=== PATIENT | female | born 1980 | race Hispanic/Latino ===

== ENCOUNTER 2024-05-30 08:00 | Emergency (ER) | payer SELFPAY ==
[2024-05-30] MEDS ORDERED: NA CHLORIDE 0.9% 100 ML ONE (08:35)
[2024-05-30] MEDS ORDERED: AMPICILLIN/SULBACTAM 3GM/VIAL ONE (08:35)
[2024-05-30 08:43] LABS: Absolute Basophils 0.1 K/uL (0-0.5); Absolute Eosinophils 0.2 K/uL (0-0.5); Absolute Lymphocytes (CBC) 2.4 K/uL (0.7-4.9); Absolute Monocytes 0.7 K/uL (0.1-1.3); Absolute Neutrophil 9.2 K/uL (1.8-8.0); Basophils % 0.8 % (0-1.3); Eosinophils % 1.7 % (0-4.4); Hematocrit 37.8 % (36.0-45.0); Hemoglobin 12.9 g/dL (12.0-15.0); Lymphocytes % 18.7 % (15.3-44.8); MCH 28.9 pg (27.0-35.0); MCHC 34.1 g/dL (32.0-36.0); MCV 84.7 fL (80-100); MPV 8.4 fL (7.6-11.3); Monocytes % 5.6 % (3.3-12.3); Neutrophils % 73.2 % (41.7-73.7); Nucleated Red Blood Cells % 0.1 % (0-0); Platelets 262 thou/uL (152-406); RBC Red Blood Cell Count 4.47 M/uL (3.86-4.86); Red Cell Distribution Width 14.4 % (12.1-15.2)
--- NOTE | 2024-05-30 08:51 | RAD REPORT ---
EXAM: Soft Tissue Neck W/Contr INDICATION: Neck pain. Sore throat TECHNIQUE: Helical CT examination of the neck [id number] cc Isovue-300 IV contrast. Sagittal and coronal reformations were generated. This exam was performed according to our departmental dose-optimization program, which includes automated exposure control, adjustment of the mA and/or kV according to patient size and/or use of iterative reconstruction technique. COMPARISON: None. FINDINGS: Mild prominence of the right tonsil. No peritonsillar abscess. The remainder of the pharynx, larynx and subglottic trachea are unremarkable Parotid, submandibular and right lobe thyroid gland appear normal. 6 mm nodule left lobe thyroid. It likely is benign. No follow-up imaging recommended. No lymphadenopathy seen. No fluid within the visualized sinuses/mastoids. IMPRESSION: Mild prominence of the right tonsil may indicate a mild tonsillitis
[2024-05-30 09:10] LABS: Anion Gap 9.6 mEq/L (5.0-15.0); Potassium 3.6 mEq/L (3.5-5.1)
[2024-05-30 09:11] LABS: Influenza A Ag Negative; Influenza B Ag Negative; SARS-CoV-2 Antigen Rapid Res Negative (Negative)
--- NOTE | 2024-05-30 09:39 | ER ---
Nurse's Notes [facility] Name: Avani Garber Age: 43 yrs Sex: Female : 1980 Arrival Date: 05/30/2024 Time: 08:00 Bed 5 Private MD: Diagnosis: Tonsillitis Presentation: 05/30 08:18 Chief complaint: Patient states: Swollen tonsil on right side x 1 week, started taking jl7 amoxicillin from [place] last night and started having cold sweats. Coronavirus screen: At this time, the client does not indicate any symptoms associated with coronavirus-19. Ebola Screen: No symptoms or risks identified at this time. Initial Sepsis Screen: Does the patient meet any 2 criteria? No. Patient's initial sepsis screen is negative. Does the patient have a suspected source of infection? No. Patient's initial sepsis screen is negative. Risk Assessment: Do you want to hurt yourself or someone else? Patient reports no desire to harm self or others. Onset of symptoms was May 23, 2024. 08:18 Method Of Arrival: Ambulatory [facility] 08:18 Acuity: CHI 3 jl7 Triage Assessment: 08:21 General: Appears in no apparent distress. uncomfortable, Behavior is calm, cooperative, jl7 appropriate for age. Pain: Complains of pain in throat. EENT: Throat is reddened has enlarged tonsils on right. Neuro: Neuro: Level of Consciousness is awake, alert, obeys commands, Oriented to person, place, time, situation. Derm: Skin is pink, warm \\T\\ dry. 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 - Infectious Disease History:: Denies. - Social history:: Smoking status: Reported history of juuling and/or vaping. Screenin:52 [facility] ED Fall Risk Assessment (Adult) History of falling in the last 3 months, iw including since admission No falls in past 3 months (0 pts) Confusion or Disorientation No (0 pts) Intoxicated or Sedated No (0 pts) Impaired Gait No (0 pts) Mobility Assist Device Used No (0 pt) Altered Elimination No (0 pt) Score/Fall Risk Level 0 - 2 = Low Risk Oriented to surroundings, Maintained a safe environment. Abuse screen: Denies threats or abuse. Denies injuries from another. Nutritional screening: No deficits noted. Tuberculosis screening: No symptoms or risk factors identified. Assessment: 08:30 General: Appears in no apparent distress. Behavior is calm, cooperative. Pain: iw Complains of pain in right aspect of posterior pharynx Pain. Neuro: Level of Consciousness is awake, alert, obeys commands, Oriented to person, place, time, situation, Moves all extremities. Full function. Cardiovascular: Patient's skin is warm and dry. Respiratory: Respiratory effort is even, unlabored, Respiratory pattern is regular, symmetrical. EENT: Throat is reddened has enlarged tonsils on right with gag reflex present. Derm: Skin is intact, is healthy with good turgor. 09:30 Reassessment: Patient appears in no apparent distress at this time. No changes from jl7 previously documented assessment. Patient and/or family updated on plan of care and expected duration. Pain level reassessed. Patient is alert, oriented x 3, equal unlabored respirations, skin warm/dry/pink. Vital Signs: 08:18 BP 160 / 102; Pulse 76; Resp 17; Temp 98.6; Pulse Ox 100% ; Weight 106.14 kg; Height 5 jl7 ft. 7 in. ; Pain 8/10; 10:26 BP 129 / 92; Pulse 67; Resp 15; Pulse Ox 100% ; jl7 08:18 Body Mass Index 36.65 (106.14 kg, 170.18 cm) jl7 08:18 Pain Scale: Adult jl7 ED Course: 08:02 Patient arrived in ED. im 08:05 Brittney Rogers MD is Attending Physician. sp3 08:18 Duncan Clay RN is Primary Nurse. jl7 08:20 Triage completed. jl7 08:21 Arm band placed on right wrist. jl7 08:30 Provided Education on: lab draw. iw 08:36 Initial lab(s) drawn, by me, sent to lab. Inserted saline lock: 22 gauge in right iw antecubital area, using aseptic technique. Blood collected. Flushed with 10 mL NS. 08:37 COVID-19 Ag + Flu A+B Ag Sent. iw 08:37 Group A Streptococcus Rapid Sent. iw 08:41 CT Soft Tissue Neck W/contr In Process Unspecified. EDMS 08:52 Patient has correct armband on for positive identification. iw 10:26 No provider procedures requiring assistance completed. IV discontinued, intact, jl7 bleeding controlled, No redness/swelling at site. Pressure dressing applied. Administered Medications: 08:51 Drug: Ampicillin-Sulbactam Sodium IVPB 3 grams IVPB once over 30 mins; (mix in 100 mL jl7 NS) Route: IVPB; Infused Over: 30 mins; Site: right antecubital; 09:21 Follow up: Response: No adverse reaction; IV Status: Completed infusion jl7 Medication: 10:26 VIS not applicable for this client. jl7 Outcome: 09:38 Discharge ordered by . sp3 10:26 Discharged to home ambulatory, jl7 10:26 Condition: stable 10:26 Discharge instructions given to patient, Instructed on discharge instructions, follow up and referral plans. medication usage, Demonstrated understanding of instructions, follow-up care, medications, Prescriptions given X 3, 10:27 Patient left the ED. jl7 Signatures: Dispatcher [employer] EDMS Bev Soto RN RN iw Duncan Clay RN RN jl7 Brittney Rogers MD MD sp3 Jessica Deutsch Corrections: (The following items were deleted from the chart) 08:21 08:20 Allergies: No Known Allergies; jl7 jl7
--- NOTE | 2024-05-30 09:39 | EDPHYS ---
Physician Documentation [facility] Name: Avani Garber Age: 43 yrs Sex: Female : 1980 Arrival Date: 05/30/2024 Time: 08:00 Bed 5 Private MD: ED Physician Brittney Rogers HPI: 05/30 08:42 This 43 yrs old Female presents to ER via Ambulatory with complaints of Swollen sp3 tonsils, sweats. 08:42 43-year-old female with history of diabetes, hypertension, hyperlipidemia, obesity now sp3 presents with right sided tonsillar swelling and pain and subjective fever for the last 2 to 3 days. Patient took "amoxicillin from [place]" which has not significantly improved. She denies any difficulty swallowing but it is painful. She denies any headache, neck pain posteriorly, chest pain, shortness of breath, abdominal pain, nausea, vomiting, diarrhea, bleeding or any other signs or symptoms on ROS at this time.. 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 - Infectious Disease History:: Denies. - Social history:: Smoking status: Reported history of juuling and/or vaping. ROS: 08:43 Constitutional: Negative for fever, chills, and weight loss, Eyes: Negative for injury, sp3 pain, redness, and discharge, Neck: Negative for injury, pain, and swelling, Cardiovascular: Negative for chest pain, palpitations, and edema, Respiratory: Negative for shortness of breath, cough, wheezing, and pleuritic chest pain, Abdomen/GI: Negative for abdominal pain, nausea, vomiting, diarrhea, and constipation, Back: Negative for injury and pain, MS/Extremity: Negative for injury and deformity, Skin: Negative for injury, rash, and discoloration, Neuro: Negative for headache, weakness, numbness, tingling, and seizure, Psych: Negative for depression, anxiety, suicide ideation, homicidal ideation, and hallucinations, Allergy/Immunology: Negative for hives, rash, and allergies, Endocrine: Negative for neck swelling, polydipsia, polyuria, polyphagia, and marked weight changes, Hematologic/Lymphatic: Negative for swollen nodes, abnormal bleeding, and unusual bruising, Exam: 08:43 Constitutional: This is a well developed, well nourished patient who is awake, alert, sp3 and in no acute distress. Head/Face: Normocephalic, atraumatic. Eyes: Pupils equal round and reactive to light, extra-ocular motions intact. Lids and lashes normal. Conjunctiva and sclera are non-icteric and not injected. Cornea within normal limits. Periorbital areas with no swelling, redness, or edema. Chest/axilla: Normal chest wall appearance and motion. Nontender with no deformity. No lesions are appreciated. Cardiovascular: Regular rate and rhythm with a normal S1 and S2. No gallops, murmurs, or rubs. Normal PMI, no JVD. No pulse deficits. Respiratory: Lungs have equal breath sounds bilaterally, clear to auscultation and percussion. No rales, rhonchi or wheezes noted. No increased work of breathing, no retractions or nasal flaring. Abdomen/GI: Soft, non-tender, with normal bowel sounds. No distension or tympany. No guarding or rebound. No evidence of tenderness throughout. Back: No spinal tenderness. No costovertebral tenderness. Full range of motion. Skin: Warm, dry with normal turgor. Normal color with no rashes, no lesions, and no evidence of cellulitis. MS/ Extremity: Pulses equal, no cyanosis. Neurovascular intact. Full, normal range of motion. Neuro: Awake and alert, GCS 15, oriented to person, place, time, and situation. Cranial nerves II-XII grossly intact. Motor strength 5/5 in all extremities. Sensory grossly intact. Cerebellar exam normal. Normal gait. Psych: Awake, alert, with orientation to person, place and time. Behavior, mood, and affect are within normal limits. 08:43 ENT: Right tonsillar swelling with mild uvular shift. Patient maintaining airway and secretions.. Vital Signs: 08:18 BP 160 / 102; Pulse 76; Resp 17; Temp 98.6; Pulse Ox 100% ; Weight 106.14 kg; Height 5 jl7 ft. 7 in. ; Pain 8/10; 10:26 BP 129 / 92; Pulse 67; Resp 15; Pulse Ox 100% ; jl7 08:18 Body Mass Index 36.65 (106.14 kg, 170.18 cm) jl7 08:18 Pain Scale: Adult jl7 MDM: 08:10 Medical Screening Exam initiated sp3 08:48 Data reviewed: vital signs, nurses notes. ED course: 43-year-old female with sore sp3 throat and right sided tonsillar swelling. Differential diagnosis includes strep pharyngitis, viral illness, peritonsillar abscess. Will obtain CT scan of the soft tissue neck, general labs and administer Unasyn 1 dose IV. Disposition pending workup and patient course.. 09:37 ED course: Patient with tonsillitis with no abscess noted. Will discharge on Augmentin sp3 and pain medication.. 05/30 08:20 Order name: CBC with Diff; Complete Time: 08:55 sp3 05/30 08:20 Order name: BMP; Complete Time: 09:37 sp3 05/30 08:20 Order name: Group A Streptococcus Rapid; Complete Time: 09:37 sp3 05/30 08:20 Order name: COVID-19 Ag + Flu A+B Ag; Complete Time: 09:37 sp3 05/30 09:03 Order name: Throat Culture EDMS 05/30 08:20 Order name: CT Soft Tissue Neck W/contr; Complete Time: 08:55 sp3 05/30 08:20 Order name: IV Saline Lock; Complete Time: 08:36 sp3 05/30 08:20 Order name: Labs collected and sent; Complete Time: 08:36 sp3 Administered Medications: 08:51 Drug: Ampicillin-Sulbactam Sodium IVPB 3 grams IVPB once over 30 mins; (mix in 100 mL jl7 NS) Route: IVPB; Infused Over: 30 mins; Site: right antecubital; 09:21 Follow up: Response: No adverse reaction; IV Status: Completed infusion jl7 Disposition Summary: 05/30/24 09:38 Discharge Ordered Notes: Location: Home sp3 Condition: Stable sp3 Diagnosis - Tonsillitis sp3 Followup: sp3 - With: Private Physician - When: Upon discharge from the Emergency Department - Reason: Continuance of care Discharge Instructions: - Discharge Summary Sheet sp3 - Tonsillitis sp3 Forms: - Work release form ss - Medication Reconciliation Form sp3 - Antibiotic Education sp3 - Prescription Opioid Use sp3 - Patient Portal Instructions sp3 - Leadership Thank You Letter sp3 Prescriptions: - Augmentin 875-125 mg Oral Tablet - take 1 tablet ORAL route every 12 hours for 10 days; 20 tablet; Refills: 0, sp3 Product Selection Permitted - Diflucan 150 mg Oral Tablet - take 1 tablet ORAL route one time for 1 day; 1 tablet; Refills: 0, Product sp3 Selection Permitted - Diclofenac Sodium 75 mg Oral Tablet Sustained Release - take 1 tablet ORAL route 2 times per day; 30 tablet; Refills: 0, Product sp3 Selection Permitted Signatures: Dispatcher [employer] EDMS Duncan Clay RN RN jl7 Brittney Rogers MD MD sp3 Corrections: (The following items were deleted from the chart) 08:21 08:21 CBC+H.LAB.BRZ ordered. EDMS EDMS 08:21 08:21 BASIC METABOLIC PANEL+C.LAB.BRZ ordered. EDMS EDMS 08:21 08:21 Group A Streptococcus Rapid Sc+I.LAB.BRZ ordered. EDMS EDMS 08:21 08:21 COVID-19 Ag + Flu A+B Ag+I.LAB.BRZ ordered. EDMS EDMS 08:21 08:21 Soft Tissue Neck W/Contr+CT.RAD.BRZ ordered. EDMS EDMS 08:21 08:20 Allergies: No Known Allergies; jl7 jl7
[2024-05-30 10:32] VITALS: TEMP 98.6; O2SAT 100
[2024-05-30 10:33] VITALS: BP 129/92
== END 2024-05-30 10:27 | disposition home or self-care (01) ==
LOC: ER 08:00
DX: J03.90 Acute tonsillitis, unspecified (principal); Z11.52 Encounter for screening for COVID-19
CPT/HCPCS: 36415; 70491; 80048; 85025; 87070; 87428; 96365; 99284; J0295; Q9967

== ENCOUNTER 2024-06-08 14:27 | Emergency (ER) | payer SELFPAY ==
[2024-06-08] MEDS ORDERED: KETOROLAC 30 MG/ML INJ ONE (14:49)
--- NOTE | 2024-06-08 16:59 | RAD REPORT ---
EXAMINATION: XR Elbow Right 3 View CLINICAL INDICATION: Female, 43 years old. PAIN RIGHT TECHNIQUE: 3 view radiographs of the right elbow were obtained. COMPARISON: No prior exam. FINDINGS: No evidence of fracture or dislocation. Normal alignment. No joint effusion. No evidence of arthropathy. No suspicious focal bone lesion. Soft tissues are unremarkable. IMPRESSION: No acute or significant abnormalities.
--- NOTE | 2024-06-08 17:10 | RAD REPORT ---
EXAMINATION: XR RIGHT HUMERUS HISTORY: PAIN RIGHT TECHNIQUE: Multiple views of the right humerus were obtained. COMPARISON: None FINDINGS: No acute fracture or dislocation. Mild caudal subluxation of the humeral head, although sub optimal positioning limits evaluation. Focus of mineralization adjacent to the greater tuberosity, could reflect sequelae of calcific tendinitis. Elbow joint alignment well maintained. Mild enthesopat hy at the tip of the acromion. AC joint appears well aligned.
--- NOTE | 2024-06-08 17:39 | ER ---
Nurse's Notes [facility] Name: Avani Garber Age: 43 yrs Sex: Female : 1980 Arrival Date: 06/08/2024 Time: 14:27 Bed 11 Private MD: Diagnosis: Pain in right arm Presentation: 06/08 14:52 Chief complaint: Patient states: pain to right elbow since yesterday. Coronavirus iw screen: At this time, the client does not indicate any symptoms associated with coronavirus-19. Ebola Screen: No symptoms or risks identified at this time. Initial Sepsis Screen: Does the patient meet any 2 criteria? No. Patient's initial sepsis screen is negative. Does the patient have a suspected source of infection? No. Patient's initial sepsis screen is negative. Risk Assessment: Do you want to hurt yourself or someone else? Patient reports no desire to harm self or others. Onset of symptoms was June 07, 2024. 14:52 Acuity: CHI 4 iw 14:52 Method Of Arrival: Ambulatory iw Triage Assessment: 18:05 General: Appears in no apparent distress. Injury Description: Bruise. 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 - Infectious Disease History:: Denies. - Social history:: Smoking status: Patient denies any tobacco usage or history of. Screenin:03 [facility] ED Fall Risk Assessment (Adult) History of falling in the last 3 months, ll1 including since admission Yes- single mechanical fall (1 pt) Confusion or Disorientation No (0 pts) Intoxicated or Sedated No (0 pts) Impaired Gait No (0 pts) Mobility Assist Device Used No (0 pt) Altered Elimination No (0 pt) Score/Fall Risk Level 0 - 2 = Low Risk Maintained a safe environment, Hourly rounding (assess needs \T\ fall precautionary measures) done. Abuse screen: Denies threats or abuse. Nutritional screening: No deficits noted. Tuberculosis screening: No symptoms or risk factors identified. Assessment: 16:15 General: Appears uncomfortable, Behavior is calm, cooperative, appropriate for age. ll1 Pain: Complains of pain in right elbow Quality of pain is described as aching. Musculoskeletal: Circulation, motion, and sensation intact. Capillary refill < 3 seconds, in right fingers. Reports pain in right elbow. 17:55 Musculoskeletal: Circulation, motion, and sensation intact. Capillary refill < 3 ll1 seconds, in right fingers. 18:03 Reassessment: No changes from previously documented assessment. Patient and/or family ll1 updated on plan of care and expected duration. Pain level reassessed. Patient is alert, oriented x 3, equal unlabored respirations, skin warm/dry/pink. Vital Signs: 14:52 BP 144 / 85; Pulse 65; Resp 16; Temp 97.6; Pulse Ox 99% ; Weight 106.59 kg; Height 5 iw ft. 7 in. ; Pain 9/10; 14:52 Body Mass Index 36.81 (106.59 kg, 170.18 cm) iw 14:52 Pain Scale: Adult iw ED Course: 14:28 Patient arrived in ED. mr 14:32 Francisca Guillory, [facility]. kb 14:32 Raquel Gonzalez MD is Attending Physician. kb 14:53 Triage completed. iw 14:54 Arm band placed on. iw 15:40 Humerus Right XRAY In Process Unspecified. EDMS 15:40 Elbow Right 3 View XRAY In Process Unspecified. EDMS 16:13 Patient placed in an exam room, on a stretcher. ll1 16:15 Veda Sanford, SARA is Primary Nurse. ll1 16:15 Warm blanket given. ll1 17:39 Raquel Gonzalez MD is Referral Physician. kb 17:50 Sling applied to right arm. ll1 18:04 Patient has correct armband on for positive identification. Provided Education on: ll1 return to ED for worsening symptoms. 18:04 No provider procedures requiring assistance completed. Patient did not have IV access ll1 during this emergency room visit. Administered Medications: 15:01 Drug: Ketorolac IM 30 mg IM once Route: IM; Site: right deltoid; iw 18:05 Follow up: Response: No adverse reaction; Pain is decreased ll1 Medication: 18:05 VIS not applicable for this client. ll1 Outcome: 17:39 Discharge ordered by . kb 18:04 Discharged to home ambulatory, ll1 18:04 Condition: stable 18:04 Discharge instructions given to patient, Instructed on discharge instructions, follow up and referral plans. medication usage, Demonstrated understanding of instructions, follow-up care, medications, Prescriptions given X 1, 18:06 Patient left the ED. ll1 Signatures: Dispatcher [employer] EDMS Francisca Guillory, CASH REGISTER MECHANIC-C CASH REGISTER MECHANIC-Ckb BuchananIsabel, Reg Reg mr Bev Soto RN Veda Chopra RN RN ll1 Corrections: (The following items were deleted from the chart) 14:54 14:52 Pulse 65bpm; Resp 16bpm; Pulse Ox 99%; Temp 97.6F; Pain 9/10, Adult; johnson ornelas
--- NOTE | 2024-06-08 17:39 | EDPHYS ---
Physician Documentation [facility] Name: Avani Garber Age: 43 yrs Sex: Female : 1980 Arrival Date: 06/08/2024 Time: 14:27 Bed 11 Private MD: ED Physician Raquel Gonzalez HPI: 06/08 14:49 This 43 yrs old Female presents to ER via Unassigned with complaints of Elbow kb Injury. 14:49 Pt is a 43 year old female who presents for right upper arm/elbow pain that started kb yesterday and got worse today. Denies fall, injury. States she has been lifting things at work, but that is not new. . 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 - Infectious Disease History:: Denies. - Social history:: Smoking status: Patient denies any tobacco usage or history of. ROS: 17:37 Constitutional: As per HPI kb Exam: 17:37 Constitutional: This is a well developed, well nourished patient who is awake, alert, kb and in no acute distress. Head/Face: Normocephalic, atraumatic. ENT: Moist Mucous membranes Cardiovascular: Regular rate Respiratory: Respirations even and unlabored. No increased work of breathing. Talking in full sentences Abdomen/GI: Soft, non-tender. No distention Skin: Warm, dry with normal turgor. Normal color. Neuro: Awake and alert, GCS 15, oriented to person, place, time, and situation. 17:37 Musculoskeletal/extremity: Extremities: grossly normal except: noted in the anterior aspect of right shoulder, right elbow and right upper arm: decreased ROM, pain, tenderness, ROM: limited active range of motion due to pain, Circulation is intact in all extremities. Sensation intact. Vital Signs: 14:52 BP 144 / 85; Pulse 65; Resp 16; Temp 97.6; Pulse Ox 99% ; Weight 106.59 kg; Height 5 iw ft. 7 in. ; Pain 9/10; 14:52 Body Mass Index 36.81 (106.59 kg, 170.18 cm) iw 14:52 Pain Scale: Adult iw MDM: 14:32 Medical Screening Exam initiated kb 17:38 Differential diagnosis: dislocation, closed fracture, contusion, tendonitis. Data kb reviewed: vital signs, nurses notes. Counseling: I had a detailed discussion with the patient and/or guardian regarding the historical points, exam findings, and any diagnostic results supporting the discharge/admit diagnosis, radiology results, the need for outpatient follow up, a family practitioner, to return to the emergency department if symptoms worsen or persist or if there are any questions or concerns that arise at home. 06/08 14:51 Order name: Humerus Right XRAY; Complete Time: 17:11 kb 06/08 14:51 Order name: Elbow Right 3 View XRAY; Complete Time: 17:00 kb 06/08 17:41 Order name: Sling; Complete Time: 17:51 kb Administered Medications: 15:01 Drug: Ketorolac IM 30 mg IM once Route: IM; Site: right deltoid; iw 18:05 Follow up: Response: No adverse reaction; Pain is decreased ll1 Disposition Summary: 06/08/24 17:39 Discharge Ordered Notes: Location: Home kb Condition: Stable kb Diagnosis - Pain in right arm kb Followup: kb - With: Emergency Department - When: As needed - Reason: Worsening of condition Followup: kb - With: Private Physician - When: 2 - 3 days - Reason: Recheck today's complaints, Continuance of care, Re-evaluation by your physician Discharge Instructions: - Discharge Summary Sheet kb - Musculoskeletal Pain kb Forms: - Work release form kb - Medication Reconciliation Form kb - Antibiotic Education kb - Prescription Opioid Use kb - Patient Portal Instructions kb - Leadership Thank You Letter kb Prescriptions: - Diclofenac Sodium 75 mg Oral tablet, delayed release (enteric coated) - take 1 tablet ORAL route 2 times per day As needed; 30 tablet; Refills: 0, kb Product Selection Permitted Signatures: Dispatcher [employer] Francisca Stinson FNP-C FNP-Bev Mosqueda RN RN iw Veda Sanford RN RN ll1 Corrections: (The following items were deleted from the chart) 14:52 14:52 Humerus Right+RAD.RAD.BRZ ordered. EDMS EDMS 14:52 14:52 Elbow Right 3 View+RAD.RAD.BRZ ordered. EDMS EDMS
[2024-06-08 18:10] VITALS: BP 144/85; TEMP 97.6; O2SAT 99
== END 2024-06-08 18:06 | disposition home or self-care (01) ==
LOC: ER 14:27
DX: M79.601 Pain in right arm (principal)

== ENCOUNTER 2024-06-24 00:24 | Emergency (ER) | payer SELFPAY ==
--- NOTE | 2024-06-24 00:45 | ER ---
Nurse's Notes [facility] Name: Avani Garber Age: 43 yrs Sex: Female : 1980 Arrival Date: 06/24/2024 Time: 00:24 Bed 19 Private MD: Diagnosis: Acute tonsillitis, unspecified Presentation: 06/24 00:34 Chief complaint: Patient states: sore throat and swollen tonsils X1 day. Coronavirus lg3 screen: Client denies travel out of the [place] in the last 14 days. At this time, the client does not indicate any symptoms associated with coronavirus-19. Ebola Screen: No symptoms or risks identified at this time. Initial Sepsis Screen: Does the patient meet any 2 criteria? No. Patient's initial sepsis screen is negative. Does the patient have a suspected source of infection? No. Patient's initial sepsis screen is negative. Risk Assessment: Do you want to hurt yourself or someone else? Patient reports no desire to harm self or others. Onset of symptoms was June 23, 2024. 00:34 Method Of Arrival: Ambulatory lg3 00:34 Acuity: CHI 4 lg3 Triage Assessment: 00:36 General: Appears in no apparent distress. comfortable, Behavior is calm, cooperative. lg3 Pain: Complains of pain in throat. EENT: Throat is reddened has patchy exudate has enlarged tonsils Reports pain when swallowing. Neuro: No deficits noted. Smith Agitation-Sedation Scale (RASS): 0 - Alert and Calm Level of Consciousness is awake, alert, obeys commands, Oriented to person, place, time, situation. Cardiovascular: No deficits noted. Denies chest pain, shortness of breath, Capillary refill < 3 seconds Clubbing of nail beds is absent JVD is absent Patient's skin is warm and dry. Respiratory: No deficits noted. Airway is patent Respiratory effort is even, unlabored, Respiratory pattern is regular, symmetrical. GI: No deficits noted. No signs and/or symptoms were reported involving the gastrointestinal system. : No signs and/or symptoms were reported regarding the genitourinary system. Derm: No deficits noted. No signs and/or symptoms reported regarding the dermatologic system. Skin is intact, is healthy with good turgor, Skin is dry, Skin is normal, Skin temperature is warm. Musculoskeletal: No deficits noted. No signs and/or symptoms reported regarding the musculoskeletal system. Circulation, motion, and sensation intact. Range of motion: intact in all extremities. 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 - Infectious Disease History:: Denies. - Social history:: Smoking status: Reported history of juuling and/or vaping. Patient uses alcohol, but reports only rare drinking. Patient/guardian denies using street drugs. - Family history:: not pertinent. - Hospitalizations: : No recent hospitalization is reported. Screenin:08 [facility] ED Fall Risk Assessment (Adult) History of falling in the last 3 months, ha1 including since admission No falls in past 3 months (0 pts) Confusion or Disorientation No (0 pts) Intoxicated or Sedated No (0 pts) Impaired Gait No (0 pts) Mobility Assist Device Used No (0 pt) Altered Elimination No (0 pt) Score/Fall Risk Level 0 - 2 = Low Risk Oriented to surroundings, Maintained a safe environment, Educated pt \T\ family on fall prevention, incl call for assistance when getting out of bed, Hourly rounding (assess needs \T\ fall precautionary measures) done. Abuse screen: Denies threats or abuse. Denies injuries from another. Nutritional screening: No deficits noted. Tuberculosis screening: No symptoms or risk factors identified. Assessment: 00:33 General: Appears comfortable, Behavior is calm, cooperative. Pain: Complains of pain in ha1 sore throat Pain currently is 7 out of 10 on a pain scale. Neuro: Level of Consciousness is awake, alert, obeys commands, Oriented to person, place, time, situation. Cardiovascular: Patient's skin is warm and dry. Respiratory: Airway is patent Respiratory effort is even, unlabored, Respiratory pattern is regular, symmetrical, Breath sounds are clear bilaterally. GI: No signs and/or symptoms were reported involving the gastrointestinal system. : No signs and/or symptoms were reported regarding the genitourinary system. EENT: Throat is reddened has patchy exudate. Derm: Skin is pink, warm \T\ dry. Vital Signs: 00:34 BP 141 / 73; Pulse 80; Resp 17 S; Temp 98.8(O); Pulse Ox 99% on R/A; Weight 106.59 kg lg3 (R); Height 5 ft. 7 in. (R); 01:08 BP 118 / 62; Pulse 75; Resp 17 S; Pulse Ox 98% on R/A; ha1 00:34 Body Mass Index 36.81 (106.59 kg, 170.18 cm) lg3 ED Course: 00:25 Patient arrived in ED. jj6 00:25 Randy Diaz MD is Attending Physician. rn 00:33 Patient has correct armband on for positive identification. Bed in low position. Call ha1 light in reach. Side rails up X 1. 00:33 Provided Education on: medication administration . ha1 00:36 Triage completed. lg3 00:36 Arm band placed on right wrist. lg3 01:09 No provider procedures requiring assistance completed. Patient did not have IV access ha1 during this emergency room visit. Administered Medications: 00:56 Drug: Rocephin (cefTRIAXone) IM 1 grams IM once Route: IM; Site: right ventrogluteal; ha1 01:10 Follow up: Response: No adverse reaction ha1 00:56 Drug: Dexamethasone IM 10 mg IM once Route: IM; Site: right ventrogluteal; ha1 01:10 Follow up: Response: No adverse reaction ha1 Medication: 01:10 VIS not applicable for this client. ha1 Outcome: 00:44 Discharge ordered by . rn 01:10 Discharged to home ambulatory, ha1 01:10 Condition: stable 01:10 Discharge instructions given to patient, Instructed on discharge instructions, follow up and referral plans. medication usage, Demonstrated understanding of instructions, follow-up care, medications, Prescriptions given X 1, 01:11 Patient left the ED. ha1 Signatures: Randy Diaz MD MD rn Able, Lacie, RN RN lg3 Diamond Meza jj6 Shelley Glass RN RN ha1
--- NOTE | 2024-06-24 00:45 | EDPHYS ---
Physician Documentation [facility] Name: Avani Garber Age: 43 yrs Sex: Female : 1980 Arrival Date: 06/24/2024 Time: 00:24 Bed 19 Private MD: ED Physician Randy Diaz HPI: 06/24 00:39 This 43 yrs old Female presents to ER via Ambulatory with complaints of Sore rn Throat. 00:39 The patient presents with sore throat. The patient describes throat pain as raw. Onset: rn The symptoms/episode began/occurred yesterday. Severity of symptoms: At their worst the symptoms were mild, in the emergency department the symptoms are unchanged. Associated signs and symptoms: Pertinent negatives fever, rhinorrhea, shortness of breath. The patient has experienced similar episodes in the past. Patient reports sore throat for 2 days, no fever or chills. Has recurrent tonsillitis. Took 1 dose of Augmentin earlier today. No difficulty swallowing or breathing. No neck stiffness. Patient reports her roommate was sick with viral infection recently.. 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 - Infectious Disease History:: Denies. - Social history:: Smoking status: Reported history of juuling and/or vaping. Patient uses alcohol, but reports only rare drinking. Patient/guardian denies using street drugs. - Family history:: not pertinent. - Hospitalizations: : No recent hospitalization is reported. ROS: 00:39 Constitutional: Negative for fever, chills, and weight loss, ENT: Positive for sore rn throat Cardiovascular: Negative for chest pain, palpitations, and edema, Respiratory: Negative for shortness of breath, cough, wheezing, and pleuritic chest pain, Exam: 00:39 Constitutional: This is a well developed, well nourished patient who is awake, alert, rn and in no acute distress. ENT: Bilateral tonsillar hypertrophy with exudate. Uvula midline. No stridor Respiratory: No increased work of breathing, no retractions or nasal flaring. Vital Signs: 00:34 BP 141 / 73; Pulse 80; Resp 17 S; Temp 98.8(O); Pulse Ox 99% on R/A; Weight 106.59 kg lg3 (R); Height 5 ft. 7 in. (R); 01:08 BP 118 / 62; Pulse 75; Resp 17 S; Pulse Ox 98% on R/A; ha1 00:34 Body Mass Index 36.81 (106.59 kg, 170.18 cm) lg3 MDM: 00:26 Medical Screening Exam initiated rn 00:39 Differential diagnosis: tonsillitis. Data reviewed: vital signs, nurses notes, and as a rn result, I will discharge patient. Counseling: I had a detailed discussion with the patient and/or guardian regarding the historical points, exam findings, and any diagnostic results supporting the discharge/admit diagnosis, the need for outpatient follow up, to return to the emergency department if symptoms worsen or persist or if there are any questions or concerns that arise at home. Special discussion: I discussed with the patient/guardian in detail that at this point there is no indication for admission to the hospital. It is understood, however, that if the symptoms persist or worsen the patient needs to return immediately for re-evaluation. Administered Medications: 00:56 Drug: Rocephin (cefTRIAXone) IM 1 grams IM once Route: IM; Site: right ventrogluteal; ha1 01:10 Follow up: Response: No adverse reaction ha1 00:56 Drug: Dexamethasone IM 10 mg IM once Route: IM; Site: right ventrogluteal; ha1 01:10 Follow up: Response: No adverse reaction ha1 Disposition Summary: 06/24/24 00:44 Discharge Ordered Notes: Location: Home rn Problem: new rn Symptoms: have improved rn Condition: Stable rn Diagnosis - Acute tonsillitis, unspecified rn Followup: rn - With: Private Physician - When: As needed - Reason: Recheck today's complaints, Re-evaluation by your physician Discharge Instructions: - Discharge Summary Sheet rn - Tonsillitis rn Forms: - Medication Reconciliation Form rn - Antibiotic manager furniture - Prescription Opioid Use rn - Patient Portal Instructions rn - Leadership Thank You Letter rn Prescriptions: - Augmentin 875-125 mg Oral Tablet - take 1 tablet ORAL route every 12 hours for 10 days; 20 tablet; Refills: 0, rn Product Selection Permitted Signatures: Randy Diaz MD MD rn Able, Lacie, RN RN lg3 Shelley Glass RN RN ha1
[2024-06-24] MEDS ORDERED: CEFTRIAXONE 1000 MG/VIAL ONE (00:49)
[2024-06-24] MEDS ORDERED: dexAMETHasone 10 MG/ML VIAL ONE (00:49)
[2024-06-24] MEDS ORDERED: LIDOCAINE 1% MPF 2 ML AMPULE ONE (00:49)
[2024-06-24 01:31] VITALS: TEMP 98.8
[2024-06-24 01:33] VITALS: BP 118/62; O2SAT 98
== END 2024-06-24 01:11 | disposition home or self-care (01) ==
LOC: ER 00:24
DX: J03.90 Acute tonsillitis, unspecified (principal); E11.9 Type 2 diabetes mellitus without complications; Z79.4 Long term (current) use of insulin; I10 Essential (primary) hypertension
CPT/HCPCS: 96372; 99284; J0696; J1100

== ENCOUNTER 2024-07-20 09:02 | Emergency (ER) | payer SELFPAY ==
[2024-07-20] MEDS ORDERED: ONDANSETRON 4 MG/2 ML VIAL ONE (09:30)
[2024-07-20 09:54] LABS: Absolute Eosinophils 0.1 K/uL (0-0.5); Absolute Lymphocytes (CBC) 1.3 K/uL (0.7-4.9); Absolute Monocytes 0.3 K/uL (0.1-1.3); Absolute Neutrophil 2.1 K/uL (1.8-8.0); Basophils % 0.9 % (0-1.3); Eosinophils % 3.8 % (0-4.4); Hematocrit 38.2 % (36.0-45.0); Hemoglobin 13.2 g/dL (12.0-15.0); Lymphocytes % 33.4 % (15.3-44.8); MCHC 34.7 g/dL (32.0-36.0); MCV 83.7 fL (80-100); MPV 7.7 fL (7.6-11.3); Monocytes % 7.9 % (3.3-12.3); Nucleated Red Blood Cells % 0.3 % (0-0); Platelets 185 thou/uL (152-406); RBC Red Blood Cell Count 4.56 M/uL (3.86-4.86); Red Cell Distribution Width 13.9 % (12.1-15.2)
[2024-07-20 10:19] LABS: ALT/SGPT 84 U/L (13-56); AST/SGOT 55 U/L (15-37); Albumin 3.4 g/dL (3.4-5.0); Albumin/Globulin Ratio 0.9 (1.1-1.8); Alkaline Phosphatase 133 U/L (45-117); BUN Blood Urea Nitrogen 18 mg/dL (7-18); Bicarbonate 25 mEq/L (21-32); Bilirubin Total 0.6 mg/dL (0.2-1.0); Glomerular Filtration Rate 110 ml/min (=/>90); Glucose Level 274 mg/dL (74-106); Protein, Total 7.4 g/dL (6.4-8.2); Sodium Level 136 mEq/L (136-145); Troponin High Sensitivity 3.1 pg/mL (<58.9)
[2024-07-20 10:20] LABS: Bilirubin Direct < 0.2 mg/dL (0-0.2); Bilirubin Indirect, Calculated 0.4 mg/dL (0.2-0.8)
[2024-07-20 10:22] LABS: Influenza A Ag Negative; Influenza B Ag Negative; SARS-CoV-2 Antigen Rapid Res Negative (Negative)
--- NOTE | 2024-07-20 10:55 | RAD REPORT ---
Procedure: Chest Single View HISTORY: Chest pain COMPARISON: none FINDINGS: The lungs appear clear of acute infiltrate. No significant pleural effusion noted. The heart is normal size. IMPRESSION: No acute abnormality is displayed.
--- NOTE | 2024-07-20 12:18 | ER ---
Nurse's Notes [facility] Name: Avani Garber Age: 43 yrs Sex: Female : 1980 Arrival Date: 07/20/2024 Time: 09:02 Bed 19 Private MD: Diagnosis: Pharyngitis, sore throat Presentation: 07/20 09:22 Chief complaint: Patient states: left sided CP x2 days with n/v/d this AM. denies abd kc6 pain. pt also reports ongoing sore throat x5 days. Coronavirus screen: At this time, the client does not indicate any symptoms associated with coronavirus-19. Ebola Screen: No symptoms or risks identified at this time. Initial Sepsis Screen: Does the patient meet any 2 criteria? No. Patient's initial sepsis screen is negative. Does the patient have a suspected source of infection? No. Patient's initial sepsis screen is negative. Risk Assessment: Do you want to hurt yourself or someone else? Patient reports no desire to harm self or others. Onset of symptoms was July 20, 2024. 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 - Infectious Disease History:: Denies. - Social history:: Smoking status: Reported history of juuling and/or vaping. Screenin:47 [facility] ED Fall Risk Assessment (Adult) History of falling in the last 3 months, kc6 including since admission No falls in past 3 months (0 pts) Confusion or Disorientation No (0 pts) Intoxicated or Sedated No (0 pts) Impaired Gait No (0 pts) Mobility Assist Device Used No (0 pt) Altered Elimination No (0 pt) Score/Fall Risk Level 0 - 2 = Low Risk Oriented to surroundings, Maintained a safe environment. Abuse screen: Denies threats or abuse. Denies injuries from another. Nutritional screening: No deficits noted. Tuberculosis screening: No symptoms or risk factors identified. Assessment: 09:47 General: Appears in no apparent distress. comfortable, well groomed, well developed, kc6 Behavior is calm, cooperative, appropriate for age. Pain: Complains of pain in anterior aspect of left upper chest, left lateral anterior chest and left breast Pain does not radiate. Pain currently is 6 out of 10 on a pain scale. Pain began 2-3 days ago. Is intermittent. Neuro: Level of Consciousness is awake, alert, obeys commands, Oriented to person, place, time, situation, Appropriate for age. Cardiovascular: Reports chest pain, Heart tones S1 S2 present Capillary refill < 3 seconds Rhythm is sinus rhythm. Respiratory: Airway is patent Trachea midline Respiratory effort is even, unlabored, Respiratory pattern is regular, symmetrical. GI: Abdomen is round non-distended, Bowel sounds present X 4 quads. Abd is soft and non tender X 4 quads. Reports diarrhea, nausea, vomiting, Patient currently denies abdominal pain. : No signs and/or symptoms were reported regarding the genitourinary system. EENT: Throat is reddened has enlarged tonsils bilaterally with gag reflex present, Reports pain when swallowing. Derm: No signs and/or symptoms reported regarding the dermatologic system. Skin is intact, is healthy with good turgor, Skin is pink, warm \T\ dry. Musculoskeletal: No signs and/or symptoms reported regarding the musculoskeletal system. Circulation, motion, and sensation intact. Range of motion: intact in all extremities. 11:11 Reassessment: Patient appears in no apparent distress at this time. No changes from kc6 previously documented assessment. Patient and/or family updated on plan of care and expected duration. Pain level reassessed. Patient is alert, oriented x 3, equal unlabored respirations, skin warm/dry/pink. 12:46 Reassessment: Patient appears in no apparent distress at this time. No changes from kc6 previously documented assessment. Patient and/or family updated on plan of care and expected duration. Pain level reassessed. Patient is alert, oriented x 3, equal unlabored respirations, skin warm/dry/pink. Vital Signs: 09:22 BP 129 / 72; Pulse 88; Resp 18 S; Temp 98.1(O); Pulse Ox 95% on R/A; Weight 108.41 kg; kc6 Height 5 ft. 7 in. ; Pain 6/10; 11:11 BP 131 / 82; Pulse 74; Resp 17 S; Pulse Ox 98% on R/A; kc6 09:22 Body Mass Index 37.43 (108.41 kg, 170.18 cm) kc6 09:22 Pain Scale: Adult kc6 ED Course: 09:04 Patient arrived in ED. mr 09:06 Brittney Rogers MD is Attending Physician. sp3 09:13 Arm band placed on Patient placed in an exam room, on a stretcher. ll1 09:22 Yu Walden, RN is Primary Nurse. kc6 09:24 Triage completed. kc6 09:45 COVID-19 Ag + Flu A+B Ag Sent. bc6 09:45 Group A Streptococcus Rapid Sent. bc6 09:45 Basic Metabolic Panel Sent. bc6 09:45 CBC with Diff Sent. bc6 09:45 LFT's Sent. bc6 09:45 Troponin HS Sent. bc6 09:45 Initial lab(s) drawn, by [facility], sent to lab. COVID swab sent to lab. Strep swab sent to [facility] lab. Inserted saline lock: 20 gauge in right antecubital area, using aseptic technique. Blood collected. Flushed with 10 mL NS. 09:46 Patient has correct armband on for positive identification. Placed in gown. Bed in low kc6 position. Call light in reach. Side rails up X 1. color television console monitor on. Pulse ox on. NIBP on. Door closed. Noise minimized. Lights dimmed. Warm blanket given. Pillow given. Verbal reassurance given. 09:46 EKG done, by ED staff, reviewed by Brittney Rogers MD. Patient maintains SpO2 saturation kc6 greater than 95% on room air. 10:34 XRAY Chest (1 view) In Process Unspecified. EDMS 12:46 No provider procedures requiring assistance completed. IV discontinued, intact, kc6 bleeding controlled, No redness/swelling at site. Pressure dressing applied. Administered Medications: 09:46 Drug: Ondansetron IVP 4 mg IVP once; over 2 minutes Route: IVP; Site: right antecubital;kc6 11:10 Follow up: Response: No adverse reaction kc6 Medication: 12:46 VIS not applicable for this client. kc6 Outcome: 12:18 Discharge ordered by . sp3 12:46 Discharged to home ambulatory, kc6 12:46 Condition: good 12:46 Discharge instructions given to patient, Instructed on discharge instructions, follow up and referral plans. medication usage, Demonstrated understanding of instructions, follow-up care, medications, Prescriptions given X 3, 12:46 Patient left the ED. kc6 Signatures: Dispatcher [employer] EDMS DewayneIsabel, Reg Reg mr Veda Sanford, RN RN ll1 Brittney Rogers MD MD sp3 Yu Walden RN RN kc6 Monik Jeffrey
--- NOTE | 2024-07-20 12:18 | EDPHYS ---
Physician Documentation [facility] Name: Avani Garber Age: 43 yrs Sex: Female : 1980 Arrival Date: 07/20/2024 Time: 09:02 Bed 19 Private MD: ED Physician Brittney Rogers HPI: 07/20 10:02 This 43 yrs old Female presents to ER via Ambulatory with complaints of sp3 Vomiting/Diarrhea, Sore Throat. 10:02 43-year-old female with history of diabetes, hypertension, hyperlipidemia presents with sp3 sore throat, mild chest pain and vomiting/diarrhea for several days. Patient has had multiple and recurrent pharyngitis episodes and she believes that this is of similar etiology. She denies any shortness of breath, blood or mucus in her emesis or stool. Diarrhea is mild and emesis has been twice. Patient endorses subjective fever. She denies headache, neck pain, back pain, dysuria, SPARE HAND CARDING symptoms, rash, known sick contacts, travel history, or any other signs or symptoms on ROS at this time including prolonged immobilization.. [employer]ER: 09:24 LMP N/A - Irregular menses, Not kc6 Historical: - Allergies: 09:24 Morphine; kc6 - PMHx: 09:24 diabetes mellitus; Hypercholesterolemia; Hypertensive disorder; kc6 - PSHx: 09:24 gastric sleeve; Cholecystectomy; kc6 - Immunization history:: Adult Immunizations up to date. - Infectious Disease History:: Denies. - Social history:: Smoking status: Reported history of juuling and/or vaping. ROS: 10:03 Constitutional: Negative for fever, chills, and weight loss, Eyes: Negative for injury, sp3 pain, redness, and discharge, Neck: Negative for injury, pain, and swelling, Respiratory: Negative for shortness of breath, cough, wheezing, and pleuritic chest pain, Back: Negative for injury and pain, MS/Extremity: Negative for injury and deformity, Skin: Negative for injury, rash, and discoloration, Neuro: Negative for headache, weakness, numbness, tingling, and seizure, Psych: Negative for depression, anxiety, suicide ideation, homicidal ideation, and hallucinations, Allergy/Immunology: Negative for hives, rash, and allergies, Endocrine: Negative for neck swelling, polydipsia, polyuria, polyphagia, and marked weight changes, Hematologic/Lymphatic: Negative for swollen nodes, abnormal bleeding, and unusual bruising, 10:03 All other systems are negative, Exam: 10:03 Constitutional: This is a well developed, well nourished patient who is awake, alert, sp3 and in no acute distress. Head/Face: Normocephalic, atraumatic. Eyes: Pupils equal round and reactive to light, extra-ocular motions intact. Lids and lashes normal. Conjunctiva and sclera are non-icteric and not injected. Cornea within normal limits. Periorbital areas with no swelling, redness, or edema. Neck: Trachea midline, no thyromegaly or masses palpated, and no cervical lymphadenopathy. Supple, full range of motion without nuchal rigidity, or vertebral point tenderness. No Meningismus. Chest/axilla: Normal chest wall appearance and motion. Nontender with no deformity. No lesions are appreciated. Cardiovascular: Regular rate and rhythm with a normal S1 and S2. No gallops, murmurs, or rubs. Normal PMI, no JVD. No pulse deficits. Respiratory: Lungs have equal breath sounds bilaterally, clear to auscultation and percussion. No rales, rhonchi or wheezes noted. No increased work of breathing, no retractions or nasal flaring. Abdomen/GI: Soft, non-tender, with normal bowel sounds. No distension or tympany. No guarding or rebound. No evidence of tenderness throughout. Back: No spinal tenderness. No costovertebral tenderness. Full range of motion. Skin: Warm, dry with normal turgor. Normal color with no rashes, no lesions, and no evidence of cellulitis. MS/ Extremity: Pulses equal, no cyanosis. Neurovascular intact. Full, normal range of motion. Neuro: Awake and alert, GCS 15, oriented to person, place, time, and situation. Cranial nerves II-XII grossly intact. Motor strength 5/5 in all extremities. Sensory grossly intact. Cerebellar exam normal. Normal gait. 10:03 ENT: Pharyngeal erythema bilaterally noted.. 10:05 ECG was reviewed by the Attending Physician. EKG demonstrates normal sinus rhythm at 83 sp3 bpm with normal intervals, normal QRS, normal axis, nonspecific diffuse ST/T changes without evidence of acute ischemia. Vital Signs: 09:22 BP 129 / 72; Pulse 88; Resp 18 S; Temp 98.1(O); Pulse Ox 95% on R/A; Weight 108.41 kg; kc6 Height 5 ft. 7 in. ; Pain 6/10; 11:11 BP 131 / 82; Pulse 74; Resp 17 S; Pulse Ox 98% on R/A; kc6 09:22 Body Mass Index 37.43 (108.41 kg, 170.18 cm) kc6 09:22 Pain Scale: Adult kc6 MDM: 09:16 Medical Screening Exam initiated sp3 10:04 Data reviewed: vital signs, nurses notes, lab test result(s), radiologic studies. ED sp3 course: 43-year-old female with up respiratory symptoms with an emphasis on sore throat as well as mild chest pain. Workup will include EKG, chest x-ray, viral swabs, strep swab, general labs. Vital signs normal. Medications as indicated. Disposition pending workup and patient course.. 12:17 ED course: Full workup negative. Will send patient home on oral antibiotics and sp3 steroids.. 07/20 09:31 Order name: Basic Metabolic Panel; Complete Time: 11:51 sp3 07/20 09:31 Order name: CBC with Diff; Complete Time: 11:51 sp3 07/20 09:31 Order name: LFT's; Complete Time: 11:51 sp3 07/20 09:31 Order name: Troponin HS; Complete Time: 11:51 sp3 07/20 09:31 Order name: Group A Streptococcus Rapid; Complete Time: 11:51 sp3 07/20 09:31 Order name: COVID-19 Ag + Flu A+B Ag; Complete Time: 11:51 sp3 07/20 10:11 Order name: Throat Culture EDMT 07/20 09:31 Order name: XRAY Chest (1 view); Complete Time: 11:51 sp3 07/20 09:31 Order name: EKG - Nurse/Tech; Complete Time: 09:46 sp3 07/20 09:31 Order name: IV Saline Lock; Complete Time: 09:45 sp3 07/20 09:31 Order name: Labs collected and sent; Complete Time: 09:45 sp3 Administered Medications: 09:46 Drug: Ondansetron IVP 4 mg IVP once; over 2 minutes Route: IVP; Site: right antecubital;kc6 11:10 Follow up: Response: No adverse reaction kc6 Disposition Summary: 07/20/24 12:18 Discharge Ordered Notes: Location: Home sp3 Condition: Stable sp3 Diagnosis - Pharyngitis, sore throat sp3 Followup: sp3 - With: Private Physician - When: Upon discharge from the Emergency Department - Reason: Continuance of care Discharge Instructions: - Discharge Summary Sheet sp3 Forms: - Medication Reconciliation Form sp3 - Antibiotic Education sp3 - Prescription Opioid Use sp3 - Patient Portal Instructions sp3 - Leadership Thank You Letter sp3 - Work release form kc6 Prescriptions: - Augmentin 875-125 mg Oral Tablet - take 1 tablet ORAL route every 12 hours for 10 days; 20 tablet; Refills: 0, sp3 Product Selection Permitted - Tramadol 50 mg Oral Tablet - take 1 tablet ORAL route every 8 hours as needed; 12 tablet; Refills: 0, sp3 Product Selection Permitted - Medrol (Jhonny) 4 mg Oral Tablets, Dose Pack - take 1 tablet ORAL route as directed - follow package instructions; 1 packet; sp3 Refills: 0, Product Selection Permitted Signatures: Dispatcher [employer] EDVeda Stratton, RN RN ll1 Brittney Rogers MD MD sp3 Yu Walden RN RN kc6 Corrections: (The following items were deleted from the chart) 09:32 09:32 Chest Single View+[email or web address] ordered. EDMS EDMS
[2024-07-20 13:01] VITALS: TEMP 98.1
[2024-07-20 13:03] VITALS: BP 131/82; O2SAT 98
== END 2024-07-20 12:46 | disposition home or self-care (01) ==
LOC: ER 09:02
DX: J02.9 Acute pharyngitis, unspecified (principal); R07.9 Chest pain, unspecified; R11.10 Vomiting, unspecified; R19.7 Diarrhea, unspecified; Z11.52 Encounter for screening for COVID-19
CPT/HCPCS: 36415; 71045; 80048; 80076; 84484; 85025; 87070; 87428; 93005; J2405